=== PATIENT | male | born 1945 | race Caucasian/White ===

== ENCOUNTER 2017-02-25 09:42 | Day surgery (SDC) | payer MEDICARE, OTHER ==
[2017-02-21 12:07] VITALS: BMI 24.7
[~2017-02-25 09:42] MED LIST: LACTATED RINGERS 1,000 ML IV SCH
[2017-02-25] MEDS: FLURBIPROFEN 0.03% OPHTH DROPS 2.5 ML BTL OP ONE ×2 (10:51→11:00)
[2017-02-25] MEDS: CYCLOPENTOLATE 1% OPHTH SOLN 2 ML BTL OP ONE ×3 (10:54→11:12)
[2017-02-25 11:17] VITALS: TEMP 98.2
[2017-02-25] MEDS ORDERED: PROPOFOL 10 MG/ML 20 ML VIAL IV ONE (11:45)
[2017-02-25] MEDS ORDERED: BALANCED SALT IRRIG SOLN COMB2 15 ML IRRIG.SOLN INTRAOCULA ONE (11:52)
[2017-02-25] MEDS ORDERED: HYALURONATE SODIUM INTRAOCULAR 1 EACH SYRINGE (10MG/ML) INTRAOCULA ONE (11:53)
[2017-02-25] MEDS ORDERED: EPINEPHrine (PF) 0.5 ML in BALANCED SALT IRRIG SOLN COMB2 500 ML IRRIGATION ONE (11:53)
--- NOTE | 2017-02-25 12:07 | P.OP ---
Date of Procedure: 02/25/17 Preoperative Diagnosis: Postoperative Diagnosis: Procedure(s) Performed: PREOPERATIVE DIAGNOSIS: Cataract, left eye. POSTOPERATIVE DIAGNOSIS: Cataract, left eye. OPERATION: Phacoemulsification cataract, left eye. DESCRIPTION OF PROCEDURE: The patient was taken to the preoperative holding area. Intravenous Propofol was given so as to bring about adequate sedation. The following mixture was given for local anesthesia: 5 mL of 2% lidocaine, 5 mL of 0.75% Marcaine, and 1 mL of Wydase. Approximately 4 mL was injected in the retrobulbar space of the surgical eye. Additional 1 mL was then directed to the temporal area of the surgical eye. This was performed to allow adequate neurological block of the facial muscles. The patient was revived and then taken into the operative room. The patient was prepped and draped in the usual sterile manner for the operative eye. A lid speculum was put into position. The conjunctiva was resected back from the limbus in the 12 o'clock position. Bleeding was controlled with electrocautery. A #69 blade was then used and a half-thickness scleral incision approximately 1-mm posterior to the limbus was made on bare sclera. This was shelved in the clear cornea using a crescent knife. Next a 15-degree blade was used to make a stab incision at the 3 o' clock position at the corneolimbal interface. Keratome blade was then used and the superior wound was extended into the anterior chamber. Viscoelastic was injected into the anterior chamber and to maintain its form. Next, a cystotome was used and a continuous anterior capsulotomy was made without difficulty. Hydrodissection using a blunt cannula and BSS was performed. Phaco probe was then employed and a groove extending from 12 to 6 o'clock in the lens was created. A Rafiq wand was used through the stab incision so as to perform a divide and conquer technique. Next an irrigation aspiration probe was utilized and any residual cortex was removed from the eye. Again, viscoelastic was injected into the anterior chamber. An KAE Symfony posterior chamber lens implant was placed in the cartridge and injected into the anterior chamber without difficulty. The SinCloud Floorey hook was utilized to spin the lens into position and this was again performed without any difficulty. The irrigation and aspiration probe was again employed and any residual viscoelastic was removed from the eye. Then BSS was injected into the limbal stab incision and the anterior chamber re-inflated. The conjunctiva was reapproximated using electrocautery. One drop of 0.25% Timoptic was placed over the corneal along with TobraDex ophthalmic ointment. Two sterile patches and a Mendoza eye shield were taped into position. The patient was transported to the recovery room in stable condition. Implants: Pathology: none sent Condition: stable Disposition: same day Indications for Procedure: Operative Findings: Description of Procedure:
[2017-02-25 12:12] VITALS: RESP 18
[2017-02-25 12:51] VITALS: BP 174/86; PULSE 56
[2017-02-25] MEDS ORDERED: PHENYLEPHRINE 10% OPHTH DROPS 5 ML BTL OP ONE (23:00)
[2017-02-25] MEDS ORDERED: BUPIVACAINE (PF) 0.75% 5 ML, LIDOCAINE 4% (PF) 5 ML, HYALURONIDASE, HUMAN RECOMB 150 UNIT MISCELLANE ONE ×3 (23:00)
[2017-02-25] MEDS ORDERED: GENTAMICIN/PREDNISOL AC OPHTH OINT 3.5GM OPHTHALMIC ONE (23:00)
[2017-02-25] MEDS ORDERED: TIMOLOL 0.5% OPHTH SOLN (PF) 0.2 ML DROPERETTE OP ONE (23:00)
== END 2017-02-25 13:04 | disposition home or self-care (01) ==
LOC: OR 09:42
PROVIDERS: ATTEND Ophthalmology
DX: H26.9 Unspecified cataract (principal); E78.5 Hyperlipidemia, unspecified; Z85.46 Personal history of malignant neoplasm of prostate; Z85.89 Personal history of malignant neoplasm of other organs and systems; K21.9 Gastro-esophageal reflux disease without esophagitis; M10.9 Gout, unspecified; Z79.891 Long term (current) use of opiate analgesic; Z79.899 Other long term (current) drug therapy
CPT/HCPCS: 66984; V2632; V2788; J2001; J3470; J0171; J2704

== ENCOUNTER 2017-03-18 09:10 | Day surgery (SDC) | payer MEDICARE, OTHER ==
[2017-03-12 12:09] VITALS: BMI 54.8
[2017-03-18] MEDS ORDERED: LIDOCAINE 1% 20 ML VIAL (10MG/ML) FOR IV START INTRADERMA ONE (09:50)
[2017-03-18] MEDS: CYCLOPENTOLATE 1% OPHTH SOLN 2 ML BTL OP ONE ×3 (09:57→10:16)
[2017-03-18] MEDS: FLURBIPROFEN 0.03% OPHTH DROPS 2.5 ML BTL OP ONE ×3 (10:00→10:21)
[2017-03-18 10:03] VITALS: RESP 16; TEMP 97.3
[2017-03-18] MEDS: PHENYLEPHRINE 10% OPHTH DROPS 5 ML BTL OP ONE ×2 (10:03→10:13)
[2017-03-18] MEDS ORDERED: PROPOFOL 10 MG/ML 20 ML VIAL IV ONE (10:39)
[2017-03-18] MEDS ORDERED: EPINEPHrine (PF) 0.5 ML in BALANCED SALT IRRIG SOLN COMB2 500 ML IRRIGATION ONE (10:47)
[2017-03-18] MEDS ORDERED: HYALURONATE SODIUM INTRAOCULAR 1 EACH SYRINGE (10MG/ML) INTRAOCULA ONE ×2 (10:51→10:53)
[2017-03-18] MEDS ORDERED: BALANCED SALT IRRIG SOLN COMB2 15 ML IRRIG.SOLN IRRIGATION ONE ×2 (10:51→10:53)
--- NOTE | 2017-03-18 11:07 | P.OP ---
Date of Procedure: 03/18/17 Preoperative Diagnosis: Postoperative Diagnosis: Procedure(s) Performed: PREOPERATIVE DIAGNOSIS: Cataract, right eye. POSTOPERATIVE DIAGNOSIS: Cataract, right eye. OPERATION: Phacoemulsification cataract, right eye. DESCRIPTION OF PROCEDURE: The patient was taken to the preoperative holding area. Intravenous Propofol was given so as to bring about adequate sedation. The following mixture was given for local anesthesia: 5 mL of 2% lidocaine, 5 mL of 0.75% Marcaine, and 1 mL of Wydase. Approximately 4 mL was injected in the retrobulbar space of the surgical eye. Additional 1 mL was then directed to the temporal area of the surgical eye. This was performed to allow adequate neurological block of the facial muscles. The patient was revived and then taken into the operative room. The patient was prepped and draped in the usual sterile manner for the operative eye. A lid speculum was put into position. The conjunctiva was resected back from the limbus in the 12 o'clock position. Bleeding was controlled with electrocautery. A #69 blade was then used and a half-thickness scleral incision approximately 1-mm posterior to the limbus was made on bare sclera. This was shelved in the clear cornea using a crescent knife. Next a 15-degree blade was used to make a stab incision at the 3 o' clock position at the corneolimbal interface. Keratome blade was then used and the superior wound was extended into the anterior chamber. Viscoelastic was injected into the anterior chamber and to maintain its form. Next, a cystotome was used and a continuous anterior capsulotomy was made without difficulty. Hydrodissection using a blunt cannula and BSS was performed. Phaco probe was then employed and a groove extending from 12 to 6 o'clock in the lens was created. A Rafiq wand was used through the stab incision so as to perform a divide and conquer technique. Next an irrigation aspiration probe was utilized and any residual cortex was removed from the eye. Again, viscoelastic was injected into the anterior chamber. An KAE Symfony posterior chamber lens implant was placed in the cartridge and injected into the anterior chamber without difficulty. The SinThe TechMapey hook was utilized to spin the lens into position and this was again performed without any difficulty. The irrigation and aspiration probe was again employed and any residual viscoelastic was removed from the eye. Then BSS was injected into the limbal stab incision and the anterior chamber re-inflated. The conjunctiva was reapproximated using electrocautery. One drop of 0.25% Timoptic was placed over the corneal along with TobraDex ophthalmic ointment. Two sterile patches and a Mendoza eye shield were taped into position. The patient was transported to the recovery room in stable condition. Implants: Pathology: none sent Condition: stable Disposition: same day Indications for Procedure: Operative Findings: Description of Procedure:
[2017-03-18 11:25] VITALS: BP 166/89; PULSE 62
[2017-03-18] MEDS ORDERED: BUPIVACAINE (PF) 0.75% 5 ML, LIDOCAINE 4% (PF) 5 ML, HYALURONIDASE, HUMAN RECOMB 150 UNIT MISCELLANE ONE ×3 (23:00)
[2017-03-18] MEDS ORDERED: GENTAMICIN/PREDNISOL AC OPHTH OINT 3.5GM OPHTHALMIC ONE (23:00)
[2017-03-18] MEDS ORDERED: TIMOLOL 0.5% OPHTH SOLN (PF) 0.2 ML DROPERETTE OP ONE (23:00)
== END 2017-03-18 11:54 | disposition home or self-care (01) ==
LOC: OR 09:10
PROVIDERS: ATTEND Ophthalmology
DX: H26.9 Unspecified cataract (principal); Z85.46 Personal history of malignant neoplasm of prostate; M10.9 Gout, unspecified; Z79.82 Long term (current) use of aspirin; Z79.899 Other long term (current) drug therapy; K21.9 Gastro-esophageal reflux disease without esophagitis
CPT/HCPCS: 66984; V2632; V2788; J2001; J3470; J0171; J2704

== ENCOUNTER → 2017-07-30 | Outpatient (CLI) | payer MEDICARE, OTHER ==
--- NOTE | 2017-07-30 10:18 | MR ---
MR right hip HISTORY: Pain, multiple myeloma Multiplanar multisequence imaging obtained through the pelvis with small [id number] images through the right hip. No comparisons There is marginal spurring with loss of articular cartilage, joint space loss within the bilateral hi ps. Joint effusions are present right greater than left. Grade 3 to grade IV chondromalacia suspected within the right femoral head. Abnormal increased signal present at the level of the acetabular labr um suggestive of tear is suspected on the left as well as the right. Some hypertrophic change present along the lateral acetabular margin. Bone marrow signal is diffusely somewhat heterogeneous compatib le with patient's history of multiple myeloma. No evident fracture or dislocation. Degenerative disc changes are present in the lower lumbar spine. Urinary bladder shows a thickened wall. Prostate is enlarged. Tarlov cysts suspected over the sacral region. IMPRESSION: Findings compatible with patient's history of multiple myeloma. Osteoarthritis. Correlate for chronic bladder outlet obstruction versus cystitis. Findings compatible with patient's history o f multiple myeloma.
== END | disposition home or self-care (01) ==
LOC: RADMRIMAIN 08:21
PROVIDERS: ATTEND Internal Medicine Hematology & Oncology
DX: C90.01 Multiple myeloma in remission (principal); M16.11 Unilateral primary osteoarthritis, right hip

== ENCOUNTER → 2018-08-03 | Outpatient (CLI) | payer MEDICARE, OTHER ==
--- NOTE | 2018-08-03 16:40 | XR ---
EXAMINATION TYPE: XR elbow limited RT DATE OF EXAM: 08/03/2018 COMPARISON: NONE HISTORY: Elbow pain and swelling TECHNIQUE: 2 views FINDINGS: There is mild spurring on the olecranon process. There is posterior soft tissue swelling. I see no fracture nor dislocation. There is some spurring at the radiohumeral joint. This calcificatio n over the lateral collateral ligament. IMPRESSION: Degenerative changes. Mild soft tissue swelling. No fracture.
== END | disposition home or self-care (01) ==
LOC: RADXRMAIN 16:18
PROVIDERS: ATTEND Registered Nurse Oncology
DX: M19.021 Primary osteoarthritis, right elbow (principal); C90.01 Multiple myeloma in remission; G89.3 Neoplasm related pain (acute) (chronic)

== ENCOUNTER → 2019-01-26 | Outpatient (CLI) | payer MEDICARE, OTHER ==
--- NOTE | 2019-01-26 10:43 | MR ---
EXAMINATION TYPE: MR knee RT wo con DATE OF EXAM: 01/26/2019 COMPARISON: None HISTORY: Pain in right knee / Rule out torn meniscus TECHNIQUE: Multiplanar, multisequence imaging of the right knee is performed without IV contrast. FINDINGS: MEDIAL MENISCUS: There is a complex tear involving the posterior horn of the medial meniscus LATERAL MENISCUS: Anterior and posterior horns are intact without tear. CRUCIATE LIGAMENTS: The anterior and posterior cruciate ligaments are intact and unremarkable. COLLATERAL LIGAMENTS: The medial collateral ligament and lateral collateral ligament complex are inta ct and unremarkable. EXTENSOR MECHANISM: Visualized quadriceps and patellar tendons are intact. EFFUSION: There is a moderate-sized suprapatellar bursal fluid collection. POPLITEAL CYST: No popliteal/corcoran cyst. TRICOMPARTMENT SPACES: There is narrowing of the knee joint as well as the patellofemoral joint with mild hypertrophic spurring and a pattern compatible with osteoarthritis. No erosive changes. CARTILAGE: Grade II chondromalacia of the lateral patellar facet. BONE MARROW SIGNAL: There is marrow edema involving the medial tibial plateau as well as the lateral femoral condyle. Definite fracture lines are seen. OTHER: There is a metallic artifact secures portions of the patella and infrapatellar anatomy partic ularly along the medial compartment. There also appears to be mild increased signal and thickening th e popliteus tendon. Correlate for tendinopathy. IMPRESSION: 1. Exam limited by metallic artifact. Findings are compatible with complex tear involving the posteri or horn medial meniscus. 2. Osteoarthritis. 3. Correlate for popliteus tendinopathy. 4. Nonspecific marrow edema or contusion involving the medial tibial plateau and lateral femoral cond yle.
== END | disposition home or self-care (01) ==
LOC: RADMRIMAIN 08:52
PROVIDERS: ATTEND Orthopaedic Surgery
DX: M17.11 Unilateral primary osteoarthritis, right knee (principal)

== ENCOUNTER 2019-07-07 07:17 | Day surgery (SDC) | payer MEDICARE, OTHER ==
[2019-07-01 08:53] VITALS: BMI 23.2
[~2019-07-07 07:17] MED LIST changes: +DEXAMETHASONE SOD PHOSPHATE 10 MG/ML 1 ML VIAL IV ONE; +HEPARIN SODIUM,PORCINE 5,000 UNIT/ML 1 ML VIAL SQ ONE; -LACTATED RINGERS 1,000 ML IV SCH; +LIDOCAINE 1% 20 ML VIAL (10MG/ML) FOR IV START INTRADERMA PRN; +METOCLOPRAMIDE 5 MG/ML 2 ML VIAL IVP PRN
[2019-07-07] MEDS: ONDANSETRON 4 MG/2 ML VIAL IVP ONE ×2 (08:00→11:24)
[2019-07-07] MEDS: LACTATED RINGERS 1,000 ML IV SCH ×2 (08:05→09:19)
[2019-07-07] MEDS ORDERED: LIDOCAINE 1% INJ 10MG/ML (20 ML MDV) ONE (09:18)
[2019-07-07] MEDS ORDERED: fentaNYL (PF) 50 MCG/ML 2 ML AMP ONE (09:18)
[2019-07-07] MEDS ORDERED: GLYCOPYRROLATE 0.2 MG/ML 2 ML VIAL ONE (09:18)
[2019-07-07] MEDS ORDERED: NEOSTIGMINE 1 MG/ML 10 ML VIAL ONE (09:18)
[2019-07-07] MEDS ORDERED: SUCCINYLCHOLINE CHLORIDE 100 MG/5 ML SYR IV ONE (09:18)
[2019-07-07] MEDS ORDERED: PROPOFOL 10 MG/ML 20 ML VIAL IV ONE (09:18)
[2019-07-07] MEDS ORDERED: ROCURONIUM BROMIDE 10 MG/ML 10 ML VIAL IV ONE (09:18)
[2019-07-07] MEDS ORDERED: MIDAZOLAM 2 MG/2 ML VIAL ONE (09:18)
[2019-07-07] MEDS ORDERED: BUPIVACAINE (PF) 0.5% 30 ML VIAL SQ ONE ×2 (09:45→10:55)
[2019-07-07] MEDS ORDERED: HYDROcodone/APAP 5-325MG 1 EACH TAB PO PRN (11:01)
[2019-07-07] MEDS ORDERED: NALOXONE 0.4 MG/ML 1 ML VIAL IV PRN (11:01)
[2019-07-07] MEDS ORDERED: TAMSULOSIN 0.4 MG CAP.ER.24H PO STA (11:01)
[2019-07-07] MEDS ORDERED: HYDROmorphone 0.5 MG/0.5 ML SYRINGE IVP PRN (11:01)
--- NOTE | 2019-07-07 11:02 | P.OP ---
Date of Procedure: 07/07/19 Procedure(s) Performed: PREOPERATIVE DIAGNOSIS: Right inguinal hernia POSTOPERATIVE DIAGNOSIS: Same PROCEDURE: Laparoscopic repair right inguinal hernia with the da Destiney robot assistance with mesh SURGEON: Miranda EBL: Minimal ANESTHESIA: General COMPLICATIONS: None OPERATIVE PROCEDURE: Patient was placed in the operating table in the supine position. The patient was placed under general anesthesia. The abdomen was prepped and draped in usual sterile fashion. A small curvilinear supraumbilical incision was made. The fascia was retracted anteriorly with Jad forceps. The Veress needle was inserted. The saline drop test was normal. Insufflation took place to 15 mmHg. A 5 mm trocar was placed into the peritoneal cavity. This was later switched to a 12 mm trocar. 2 additional 8 mm trochars were placed in the right upper quadrant and left upper quadrant under visualization. The robotic arms were then brought in and docked into place. The fenestrated bipolar was used in the left arm and the laparoscopic con was utilized in the right arm. A 30 12 mm scope was used in the up position. The peritoneal cavity was inspected. The patient had a moderate sized indirect hernia on the right side. No hernia identified on the left. The peritoneum was incised in a horizontal fashion cephalad to the internal inguinal ring. Following that careful dissection of the preperitoneal space took place. This took place using both electrocautery, sharp dissection but primarily blunt dissection. Visualization of the pubic tubercle and Scottie's ligament took place medially. Full dissection took place laterally as well. The hernia sac was fully dissected. Once we had adequate space the 15 x 10 progrip mesh was advanced into the preperitoneal space and flattened out appropriately to cover all potential hernia sites. No sutures were used. The peritoneal defect was then closed using a locking 2-0 VLok suture. The large hernia sac was incorporated into the peritoneal closure. The pneumoperitoneum was then evacuated. The fascia at the 12 mm site was closed using the Steve Argueta technique and an 0 Vicryl stitch. The skin of all 3 sites was closed using a 4-0 Monocryl stitch. Skin glue was then applied. DISPOSITION: Stable to recovery room
[2019-07-07 11:15] VITALS: TEMP 97.3
[2019-07-07] MEDS: HYDROmorphone 0.5 MG/0.5 ML SYRINGE IVP PRN ×4 (11:24→11:53)
[2019-07-07] MEDS ORDERED: KETOROLAC 30 MG/ML 1 ML VIAL IVP ONE (11:24)
[2019-07-07 14:00] VITALS: BP 154/74; PULSE 46; RESP 18
== END 2019-07-07 14:42 | disposition home or self-care (01) ==
LOC: OR 07:17
PROVIDERS: ATTEND Surgery
DX: K40.90 Unilateral inguinal hernia, without obstruction or gangrene, not specified as recurrent (principal); I10 Essential (primary) hypertension; C90.01 Multiple myeloma in remission; D72.819 Decreased white blood cell count, unspecified; M10.9 Gout, unspecified; E78.5 Hyperlipidemia, unspecified; H91.90 Unspecified hearing loss, unspecified ear; K21.9 Gastro-esophageal reflux disease without esophagitis; M19.90 Unspecified osteoarthritis, unspecified site; Z79.1 Long term (current) use of non-steroidal anti-inflammatories (NSAID); Z79.899 Other long term (current) drug therapy; Z79.82 Long term (current) use of aspirin; Z85.46 Personal history of malignant neoplasm of prostate; Z94.84 Stem cells transplant status; Z87.19 Personal history of other diseases of the digestive system; Z98.42 Cataract extraction status, left eye; Z98.41 Cataract extraction status, right eye; Z87.891 Personal history of nicotine dependence; Z96.1 Presence of intraocular lens
CPT/HCPCS: 84132; 49650; C1781; J2250; J1644; J1100; J2710; J0690; J2405; J2001; J3010; J1885; J0330; J2704; J1170

== ENCOUNTER 2020-03-02 09:43 | Emergency (ER) | payer MEDICARE, OTHER ==
[2020-03-02 09:52] VITALS: BP 186/93; PULSE 65; RESP 18; TEMP 98
--- NOTE | 2020-03-02 10:13 | ED ---
Neck Injury/Pain HPI - General Chief Complaint: Neck Pain/Injury Stated Complaint: Stiff neck Time Seen by Provider: 03/02/20 09:53 Mode of arrival: ambulatory Limitations: no limitations - History of Present Illness Initial Comments: Patient is a 75-year-old male presenting to the emergency Department with complaints of neck pain x 1 day. 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 Patient states he woke up the next morning with a mild stiff neck and the pain has been progressing for the last day. Patient states he has pain with turning his head to each side. He does have pain medication at home however he states it did not help with his pain. He denies having any falls or trauma. He denies having recent fever, chills, chest pain, abdominal pain. He denies any previous neck surgeries. He has no further complaints at this time. Upon arrival to the ER, his vital signs are stable. - Related Data Home Medications Medication Instructions Recorded Confirmed Omeprazole [PriLOSEC] 20 mg PO [id number] 04/21/15 07/01/19 Cetirizine HCl [Zyrtec] 10 mg PO DAILY 05/01/15 07/01/19 Colchicine [Colcrys] 0.6 mg PO BID PRN 05/01/15 07/01/19 Aspirin 325 mg PO DAILY 02/21/17 07/01/19 Multivitamins, Thera [Multivitamin 1 tab PO DAILY 02/21/17 07/01/19 (formulary)] Niacin 500 mg PO DAILY 02/21/17 07/01/19 Tamsulosin [Flomax] 0.4 mg PO DAILY 02/21/17 07/01/19 Allopurinol [Zyloprim] 300 mg PO DAILY 04/14/19 07/01/19 Ibuprofen [Motrin] 800 mg PO BID 04/14/19 07/01/19 Lenalidomide [Revlimid] 5 mg PO DAILY 04/14/19 07/01/19 Cholecalciferol (Vitamin D3) 5,000 unit PO DAILY 07/01/19 07/01/19 [Vitamin D3] Previous Rx's Medication Instructions Recorded Cyclobenzaprine [Flexeril] 5 mg PO BID PRN #10 tablet 03/02/20 Allergies Allergy/AdvReac Type Severity Reaction Status Date / Time No Known Allergies Allergy Verified 03/02/20 09:52 Review of Systems ROS Statement: Those systems with pertinent positive or pertinent negative responses have been documented in the HPI. ROS Other: All systems not noted in ROS Statement are negative. Past Medical History Past Medical History: Cancer, GERD/Reflux, GI Bleed, Hyperlipidemia, Prostate Disorder, Skin Disorder Additional Past Medical History / Comment(s): HX OF PROSTATE CA (tx with radiation), Multiple myeloma. GOUT, hiatal hernia, arthritis in joints, seborrhea on forehead. History of Any Multi-Drug Resistant Organisms: None Reported Past Surgical History: Hernia Repair Additional Past Surgical History / Comment(s): BONE MARROW biopsy x 2, ARTHROSCOPY OF rt SHOULDER, COLONOSCOPY AND EGD, arthroscopy rt knee, left eye- cataract surgery Past Anesthesia/Blood Transfusion Reactions: No Reported Reaction Additional Past Anesthesia/Blood Transfusion Reaction / Comment(s): . Past Psychological History: No Psychological Hx Reported Smoking Status: Never smoker Past Alcohol Use History: Occasional Past Drug Use History: None Reported - Past Family History Father Family Medical History: Cancer General Exam - General Exam Comments Initial Comments: GENERAL: Well-appearing, well-nourished and in no acute distress. HEAD: Atraumatic, normocephalic. EYES: Pupils equal round and reactive to light, extraocular movements intact, sclera anicteric, conjunctiva are normal. ENT: TMs normal, nares patent, oropharynx clear without exudates. Moist mucous membranes. NECK: Tender with palpation posterior cervical spine, bilateral cervical paraspinals. Decreased range of motion secondary to the pain. Without lymphadenopathy or JVD. LUNGS: Breath sounds clear to auscultation bilaterally and equal. No wheezes rales or rhonchi. HEART: Regular rate and rhythm without murmurs, rubs or gallops. ABDOMEN: Soft, nontender, normoactive bowel sounds. No guarding, no rebound. No masses appreciated. : Deferred EXTREMITIES: Normal range of motion, no pitting or edema. No clubbing or cyanosis. NEUROLOGICAL: Cranial nerves II through XII grossly intact. Normal speech, normal gait. PSYCH: Normal mood, normal affect. SKIN: Warm, Dry, normal turgor, no rashes or lesions noted. Limitations: no limitations Course Vital Signs 03/02/20 09:47 Temperature 98.0 F Pulse Rate 65 Respiratory 18 Rate Blood Pressure 186/93 O2 Sat by Pulse 99 Oximetry Medical Decision Making - Medical Decision Making Patient is a 75-year-old male presenting with neck pain times one day. No traumas or falls. X-rays reveal no acute fractures/dislocations. I discussed with patient this is most likely muscle related. He will continue with hot packs as well as gentle stretching. Patient will trial of muscle relaxer. He is in agreement with this plan of care. He is stable for discharge. He will f/u with PCP. Return parameters were discussed with the patient and he verbalized understanding. Disposition Clinical Impression: Cervical strain, Neck pain Disposition: HOME SELF-CARE Condition: Stable Instructions (If sedation given, give patient instructions): Cervical Strain (ED) Additional Instructions: Please return to the Emergency Department if symptoms worsen or any other concerns. May use Tylenol or Motrin for discomfort. Apply hot packs to the area and gentle stretching. Follow up with PCP as symptoms persist. Prescriptions: Cyclobenzaprine [Flexeril] 5 mg PO BID PRN #10 tablet PRN Reason: Muscle Spasm Is patient prescribed a controlled substance at d/c from ED?: No Referrals: Petra Gutierrez MD [Primary Care Provider] - 1-2 days
--- NOTE | 2020-03-02 10:30 | XR ---
EXAMINATION TYPE: XR cervical spine comp DATE OF EXAM: 03/02/2020 CLINICAL HISTORY: pain COMPARISON: NONE TECHNIQUE: Frontal, lateral, oblique, swimmers, and open mouth view of the cervical spine are obtaine d. FINDINGS: Mild curvature seen convex to the left. There is moderate to severe degenerative disc space narrowing C3-4 through C7-T1. There is grade 1 anterolisthesis of C5 on C6 measuring 3 mm related to severe degenerative change of the cervical apophyseal joints. No evidence for fracture. Bilateral ne ural foraminal encroachment. IMPRESSION: No acute fracture is seen in the cervical spine.ICD 10 NO FRACTURE, INITIAL EVALUATION
== END 2020-03-02 10:47 | disposition home or self-care (01) ==
LOC: EC 09:43
DX: S16.1XXA Strain of muscle, fascia and tendon at neck level, initial encounter (principal); K21.9 Gastro-esophageal reflux disease without esophagitis; Z79.82 Long term (current) use of aspirin; Z79.899 Other long term (current) drug therapy; Z85.46 Personal history of malignant neoplasm of prostate; X58.XXXA Exposure to other specified factors, initial encounter
CPT/HCPCS: 72050; 99283

== ENCOUNTER → 2020-06-01 | Outpatient (CLI) | payer MEDICARE ==
--- NOTE | 2020-06-01 09:25 | MR ---
MRI CERVICAL SPINE: CLINICAL HISTORY: History of multiple myeloma with neck pain. TECHNIQUE: Multiplanar, multisequence imaging of the cervical spine is performed with IV contrast, 7. 5 cc of gadolinium was given intravenously. Without contrast imaging not performed as could not be au thorized prior to scanning. COMPARISON: None. FINDINGS: Coronal images show marked dextroconvex scoliosis centered in the upper thoracic spine with some reactive levoconvex scoliosis centered in the mid cervical spine. Sagittal images of the cervic al spine show the craniocervical junction to appear within normal limits. The cervical and upper tho racic spinal cord is normal in caliber and signal. Loss of normal cervical curvature on sagittal imag es with grade 1 anterolisthesis C4 ON C5 and C5 on C6. The vertebral body heights are normal. Mild multilevel disc space narrowing. The bone marrow signal intensity is within normal limits. No suspici ous postcontrast enhancement. Axial images show the C2-C3 level to appear within normal limits. Axial images at the C3-C4 level shows central disc protrusion mildly effacing the anterior thecal sac with uncovertebral and facet degenerative changes causing mild to moderate right-sided neural forami nal narrowing. Axial images at the C4-C5 level show more prominent broad-based left paracentral disc protrusion effa cing the anterior thecal sac causing flattening of the ventral surface of spinal cord with some isrrael nal spurring and uncovertebral facet degenerative changes greater on the right causing moderate to se chelle right-sided neural foraminal narrowing. Axial images at C5-C6 level show right-sided uncovertebral facet degenerative changes along with broa d-based left paracentral disc protrusion. There is effacement of the anterior thecal sac and causing mild to moderate right-sided neural foraminal narrowing. Axial images at the C6-C7 level show right lateral spurring with central disc protrusion minimally ef facing anterior thecal sac, there is asymmetric mild to moderate right-sided neural foraminal narrowi ng. Axial images at the C7-T1 level are felt within normal limits. IMPRESSION: Scoliosis along with multilevel degenerative changes in the cervical spine as detailed ab ove. Most prominent disc herniation noted at C4-C5 level. Increased right-sided uncovertebral facet d egenerative change is noted versus opposite left side. No suspicious focal osseous lesion to suggest myeloma involvement.
== END | disposition home or self-care (01) ==
LOC: RADMRIMAIN 07:48
PROVIDERS: ATTEND Internal Medicine Hematology & Oncology
DX: M41.82 Other forms of scoliosis, cervical region (principal); M50.221 Other cervical disc displacement at C4-C5 level; M47.892 Other spondylosis, cervical region; C90.01 Multiple myeloma in remission
CPT/HCPCS: 72142; A9585

== ENCOUNTER 2020-09-09 11:52 | Emergency (ER) | payer MEDICARE ==
[2020-09-09 12:10] VITALS: BP 186/81; PULSE 80; RESP 18; TEMP 98
--- NOTE | 2020-09-09 12:46 | XR ---
EXAMINATION TYPE: XR humerus LT DATE OF EXAM: 09/09/2020 CLINICAL HISTORY: Fall injury with pain TECHNIQUE: Two views of the left humerus are obtained. COMPARISON: None. FINDINGS: There is no acute fracture or dislocation seen in the left humerus. Mild to moderate narro wing at glenohumeral and acromioclavicular joints. Mild spurring on the lateral humeral articulation. The overlying soft tissue appears within normal limits. IMPRESSION: No acute fracture or dislocation is evident in the left humerus.
[2020-09-09] MEDS ORDERED: LIDOCAINE 5% PATCH TOPICAL STA (13:14)
--- NOTE | 2020-09-09 13:16 | ED ---
General Adult HPI - General Chief complaint: Extremity Injury, Upper Stated complaint: Fall/Left Arm Time Seen by Provider: 09/09/20 13:02 Source: patient Mode of arrival: ambulatory Limitations: no limitations - History of Present Illness Initial comments: Dictation was produced using [employer] dictation software. please excuse any grammatical, word or spelling errors. This patient was cared for during a federal and state declared state of emergency secondary to Covid 19 Chief Complaint: 75-year-old male presents with arm pain History of Present Illness: 75-year-old male who states he presents with left arm pain. Patient reports that he tripped over some [employer]. He fell forward and uses left elbow to try to catch his fall. Since then he's had left humerus pain. Patient denies any other trauma. Has no complaints. His complaint of some mild worsening with abduction of the left upper extremity. He denies any wrist pain. The ROS documented in this emergency department record has been reviewed and confirmed by me. Those systems with pertinent positive or negative responses have been documented in the HPI. All other systems are other negative and/or noncontributory. PHYSICAL EXAM: General Impression: Alert and oriented x3, not in acute distress HEENT: Normocephalic atraumatic, extra-ocular movements intact, pupils equal and reactive to light bilaterally, mucous membranes moist. Cardiovascular: Heart regular rate and rhythm Chest: Able to complete full sentences, no retractions, no tachypnea Abdomen: abdomen soft, non-tender, non-distended, no organomegaly Musculoskeletal: Pulses present and equal in all extremities, no peripheral edema Motor: no focal deficits noted Neurological: CN II-XII grossly intact, no focal motor or sensory deficits noted Left upper extremity: Atraumatic, there is tenderness to palpation over the left lateral humerus. Pain is reproduced with abduction Skin: Intact with no visualized rashes Psych: Normal affect and mood ED course: 75-year-old male presents with left upper extremity pain. As upon arrival are within acceptable limits. X-rays unremarkable. Patient given Lidoderm patch. Patient will be discharged. - Related Data Home Medications Medication Instructions Recorded Confirmed Omeprazole [PriLOSEC] 20 mg PO AC-BRKFST 04/21/15 07/01/19 Cetirizine HCl [Zyrtec] 10 mg PO DAILY 05/01/15 07/01/19 Colchicine [Colcrys] 0.6 mg PO BID PRN 05/01/15 07/01/19 Aspirin 325 mg PO DAILY 02/21/17 07/01/19 Multivitamins, Thera [Multivitamin 1 tab PO DAILY 02/21/17 07/01/19 (formulary)] Niacin 500 mg PO DAILY 02/21/17 07/01/19 Tamsulosin [Flomax] 0.4 mg PO DAILY 02/21/17 07/01/19 Ibuprofen [Motrin] 800 mg PO BID 04/14/19 07/01/19 Lenalidomide [Revlimid] 5 mg PO DAILY 04/14/19 07/01/19 allopurinoL [Zyloprim] 300 mg PO DAILY 04/14/19 07/01/19 Cholecalciferol (Vitamin D3) 5,000 unit PO DAILY 07/01/19 07/01/19 [Vitamin D3] Previous Rx's Medication Instructions Recorded Cyclobenzaprine [Flexeril] 5 mg PO BID PRN #10 tablet 03/02/20 Allergies Allergy/AdvReac Type Severity Reaction Status Date / Time No Known Allergies Allergy Verified 09/09/20 12:06 Review of Systems ROS Statement: Those systems with pertinent positive or pertinent negative responses have been documented in the HPI. ROS Other: All systems not noted in ROS Statement are negative. Past Medical History Past Medical History: Cancer, GERD/Reflux, GI Bleed, Hyperlipidemia, Prostate Disorder, Skin Disorder Additional Past Medical History / Comment(s): HX OF PROSTATE CA (tx with radiation), Multiple myeloma. GOUT, hiatal hernia, arthritis in joints, seborrhea on forehead. History of Any Multi-Drug Resistant Organisms: None Reported Past Surgical History: Hernia Repair Additional Past Surgical History / Comment(s): BONE MARROW biopsy x 2, ARTHROSCOPY OF rt SHOULDER, COLONOSCOPY AND EGD, arthroscopy rt knee, left eye- cataract surgery Past Anesthesia/Blood Transfusion Reactions: No Reported Reaction Additional Past Anesthesia/Blood Transfusion Reaction / Comment(s): . Past Psychological History: No Psychological Hx Reported Smoking Status: Former smoker Past Alcohol Use History: Occasional Past Drug Use History: None Reported - Past Family History Father Family Medical History: Cancer General Exam Limitations: no limitations Course Vital Signs 09/09/20 12:06 Temperature 98 F Pulse Rate 80 Respiratory 18 Rate Blood Pressure 186/81 O2 Sat by Pulse 98 Oximetry Disposition Clinical Impression: Arm pain Disposition: HOME SELF-CARE Condition: Good Instructions (If sedation given, give patient instructions): Contusion in Adults (ED) Is patient prescribed a controlled substance at d/c from ED?: No Referrals: Oswald Carbajal MD [Primary Care Provider] - 1-2 days Time of Disposition: 13:16
== END 2020-09-09 13:38 | disposition home or self-care (01) ==
LOC: EC 11:52
DX: M79.602 Pain in left arm (principal); K21.9 Gastro-esophageal reflux disease without esophagitis; M19.90 Unspecified osteoarthritis, unspecified site; M10.9 Gout, unspecified; Z79.1 Long term (current) use of non-steroidal anti-inflammatories (NSAID); Z79.82 Long term (current) use of aspirin; Z79.899 Other long term (current) drug therapy; Z87.891 Personal history of nicotine dependence; Z85.46 Personal history of malignant neoplasm of prostate; Z98.42 Cataract extraction status, left eye; W01.0XXA Fall on same level from slipping, tripping and stumbling without subsequent striking against object, initial encounter; Y92.009 Unspecified place in unspecified non-institutional (private) residence as the place of occurrence of the external cause
CPT/HCPCS: 99283

== ENCOUNTER → 2022-05-22 | Outpatient (CLI) | payer MEDICARE ==
--- NOTE | 2022-05-22 10:34 | US ---
EXAMINATION TYPE: US duplex aorta DATE OF EXAM: 05/22/2022 COMPARISON: NONE CLINICAL HISTORY: Z13.6 SCREENING FOR CARDIOVASCULAR DISEASE. No HTN TECHNIQUE: Multiple sonographic images of the abdominal aorta are obtained. FINDINGS: EXAM MEASUREMENTS: Abdominal Aorta: Proximal: 1.7 x 1.6 cm Mid: 1.8 x 1.4 cm Distal: 1.7 x 1.8 cm Bifurcation: Right- 1.0 x 1.0 cm Left- 1.0 x 1.1 cm AUTOMATIC TRANSMISSION MECHANIC NOTES: Portions of aorta obscured by overlying bowel gas IMPRESSION: 1. No suspicious changes within visualized portions for abdominal aortic aneurysm.
== END | disposition home or self-care (01) ==
LOC: RADUSWWP 09:21
PROVIDERS: ATTEND Family Medicine
DX: Z13.6 Encounter for screening for cardiovascular disorders (principal)
CPT/HCPCS: 93979

== ENCOUNTER → 2022-11-01 | Outpatient (CLI) | payer MEDICARE ==
--- NOTE | 2022-11-04 12:49 | PE ---
EXAMINATION TYPE: PET CT fusion whole body DATE OF EXAM: 11/01/2022 CLINICAL INDICATION:Male, 77 years old with history of C90.01 Multiple Myeloma; TECHNIQUE: Following the intravenous administration of 10.15 mCi of F-18 FDG, whole body images are performed from the skull base to the midthigh. Images are reviewed on the computer in the coronal, axial, and sagittal planes. Reconstructed rotating images are created on independent workstation and reviewed on the computer. A non-contrast CT is performed in conjunction with the PET scan. Glucose level 80 mg/dL COMPARISON: CT None, PET/CT None, MR cervical spine 06/01/2020 FINDINGS: Mediastinal SUV mean is 1.1. Hepatic parenchyma SUV mean is 2.0. SKULL BASE AND NECK: No suspicious radiotracer activity. Laryngeal probable vocal cord physiologic u ptake max SUV 7.0. CHEST, MEDIASTINUM, AND HILAR REGION: No suspicious radiotracer activity. ABDOMEN AND PELVIS: No suspicious radiotracer activity. OSSEOUS STRUCTURES: No suspicious radiotracer activity. OTHER CT: Atherosclerosis of the carotid bifurcations including the coronary arteries. Heart is mildl y enlarged for size. Mild bladder wall thickening which could be due to underdistention. IMPRESSION: No suspicious radiotracer activity.
== END | disposition home or self-care (01) ==
LOC: RADPETMAIN 09:46
PROVIDERS: ATTEND Internal Medicine Hematology & Oncology
DX: C90.01 Multiple myeloma in remission (principal)
CPT/HCPCS: 78816; A9552

== ENCOUNTER → 2024-04-22 | Outpatient (CLI) | payer MEDICARE ==
--- NOTE | 2024-04-22 11:53 | MR ---
EXAMINATION TYPE: MR lumbar spine wo/w con DATE OF EXAM: 04/22/2024 COMPARISON: None HISTORY: Low back pain into rt lower extremity, Hx of multiple myeloma TECHNIQUE: Multiplanar, multisequence images of the lumbar spine were acquired without and with 5 mL intravenous Gadavist gadolinium contrast. Findings: There is a moderate compression fracture of T12 and mild superior endplate compression fractures of L 1 and L2. The vertebral segments are normal in alignment. There is heterogeneous signal intensity throughout the lumbar lower thoracic vertebral segments with heterogeneous contrast enhancement consistent with the history of multiple myeloma. There is a mild to moderate broad-based central disc protrusion at L4-5 disc slightly greater to the left of midline resulting in minimal compromise of the left lateral recess. There is loss of signal intensity, mild disc space narrowing and circumferential disc bulge at the L3 -4, L4-5 and L5-S1 discs indicating mild degenerative disc disease. There is mild facet arthropathy at the L4-5 and L5-S1 levels and moderate to marked facet arthropathy at the L2-3 and L3-4 levels. Secondary to circumferential disc bulge and thickening of the ligamentum flavum and facet hypertrophy , there is mild spinal stenosis at the L3-4 level. There is moderate neuroforaminal stenosis L5-S1 level bilaterally and moderate neural foraminal steno sis at the L4-5 level on the left. IMPRESSION: 1. Mild signal intensity in the regular enhancement of the vertebral segments in the lower thoracic a nd lumbar spine consistent with history of multiple myeloma. 2. Pathologic compression fractures at the T12, L1 and L2 level as described above. 3. L4-5 disc protrusion is described above. Mild degenerative disc disease from L3 through S1 4. Mild spinal stenosis at the L3-4 level. 5. Facet arthropathy throughout the lumbar region moderate to marked at the L2-3 and L3-4 level. 6. L4-5 and L5-S1 neural foraminal stenosis as described above.
== END | disposition home or self-care (01) ==
LOC: RADMRIMAIN 07:54
PROVIDERS: ATTEND Internal Medicine Hematology & Oncology
DX: M47.816 Spondylosis without myelopathy or radiculopathy, lumbar region (principal); C90.01 Multiple myeloma in remission; M99.73 Connective tissue and disc stenosis of intervertebral foramina of lumbar region; M48.55XA Collapsed vertebra, not elsewhere classified, thoracolumbar region, initial encounter for fracture; M48.061 Spinal stenosis, lumbar region without neurogenic claudication; M51.37 Other intervertebral disc degeneration, lumbosacral region; M51.26 Other intervertebral disc displacement, lumbar region; D72.819 Decreased white blood cell count, unspecified; D51.9 Vitamin B12 deficiency anemia, unspecified; R19.7 Diarrhea, unspecified
CPT/HCPCS: 72158; A9585

== ENCOUNTER → 2024-06-10 | Outpatient (CLI) | payer MEDICARE ==
--- NOTE | 2024-06-10 10:08 | PE ---
EXAMINATION TYPE: PET CT fusion whole body DATE OF EXAM: 06/10/2024 CLINICAL INDICATION:Male, 79 years old with history of D72.819 ChjpbbrbmbZ34.01Multiple IhlxocvN58.9A nemia R19.7; TECHNIQUE: Following the intravenous administration of 7.98 mCi of F-18 FDG, whole body images are performed from the skull base to the midthigh. Images are reviewed on the computer in the coronal, a xial, and sagittal planes. Reconstructed rotating images are created on independent workstation and reviewed on the computer. A non-contrast CT is performed in conjunction with the PET scan. Glucose level 112 mg/dL CT DLP: 656 mGycm, Automated exposure control for dose reduction was used. COMPARISON: CT None, PET/CT 11/01/2022, MRI: 04/22/2024 FINDINGS: Mediastinal SUV mean is 1.8. Hepatic parenchyma SUV mean is 2.6 SKULL BASE AND NECK: No suspicious radiotracer activity. Laryngeal probable vocal cord uptake max MCNULTY V 11.8, previously 7.0. CHEST, MEDIASTINUM, AND HILAR REGION: No suspicious radiotracer activity. ABDOMEN AND PELVIS: No suspicious radiotracer activity. OSSEOUS STRUCTURES: No suspicious radiotracer activity. Linear uptake to L3 vertebral body max SUV 5. 0 with 25% height loss and no significant retropulsion findings, new from MRI. OTHER CT: Atherosclerosis of the carotid bifurcations including the coronary arteries. Heart is mildl y enlarged for size. Mild bladder wall thickening which could be due to underdistention. IMPRESSION: 1. No suspicious radiotracer activity. 2. Linear uptake to the L3 vertebral body compatible with compression fracture with 25% height loss.
== END | disposition home or self-care (01) ==
LOC: RADPETMAIN 06:56
PROVIDERS: ATTEND Internal Medicine Hematology & Oncology
DX: C90.01 Multiple myeloma in remission (principal); D51.9 Vitamin B12 deficiency anemia, unspecified; R19.7 Diarrhea, unspecified; R93.7 Abnormal findings on diagnostic imaging of other parts of musculoskeletal system; D72.819 Decreased white blood cell count, unspecified; D64.9 Anemia, unspecified
CPT/HCPCS: 78816; A9552

== ENCOUNTER 2024-07-06 06:26 | Day surgery (SDC) | payer MEDICARE ==
[2024-07-01 09:29] VITALS: BMI 20.5
[2024-07-06 06:53] VITALS: TEMP 97.1
[2024-07-06] MEDS: IV FLUID CONTINUATION 1,000 ML IV ONE (06:53)
[2024-07-06] MEDS: LACTATED RINGERS 1,000 ML IV SCH (06:53)
[2024-07-06] MEDS ORDERED: LIDOCAINE 1% INJ 10MG/ML (20 ML MDV) ONE (07:06)
[2024-07-06] MEDS ORDERED: PROPOFOL 10 MG/ML 20 ML VIAL IV ONE (07:06)
[2024-07-06 07:49] VITALS: BP 124/60; PULSE 67; RESP 17
[2024-07-06 07:56] LABS: HCT 37.3 % (39.0-53.0); HGB 12.7 gm/dL (13.0-17.5); MCH 34.9 pg (25.0-35.0); MCHC 33.9 g/dL (31.0-37.0); MCV 102.9 fL (80.0-100.0); Macrocytosis Slight; Mean Platelet Volume 8.8; Platelet Count 129 k/uL (150-450); RBC 3.63 m/uL (4.30-5.90); RDW 15.5 % (11.5-15.5); Reticulocyte % 1.7 % (0.5-2.0); WBC 4.1 k/uL (3.8-10.6)
[2024-07-06 08:37] LABS: Eosinophils # (M) 0.04 k/uL (0-0.7); Lymphocytes # (M) 1.72 k/uL (1.0-4.8); Monocytes # (M) 0.66 k/uL (0-1.0); Neutrophils # (M) 1.68 k/uL (1.3-7.7); Neutrophils % (M) 41 %; Nucleated Red Blood Cells 0 /100 WBC (0-0); Total Cells Counted 100
--- NOTE | 2024-07-08 14:47 | OP ---
OPERATIVE REPORT DATE OF SERVICE : 07/06/2024 PROCEDURE: Bone marrow aspirate and biopsy. INDICATION: Recurrent multiple myeloma. DESCRIPTION OF PROCEDURE: After obtaining consent from the patient, the procedure was performed in the endoscopy suite under general anesthesia performed by anesthesia team. The patient was put on the left lateral decubitus position. The right posterior iliac crest was localized. Skin was prepped with ChloraPrep. All sterile procedures were followed. About 1 mL of 2% xylocaine was used for local anesthetic. Jamshidi needle was inserted, about 15 mL of aspirate and 2 cm core biopsy was obtained without any difficulties. Pressure applied afterwards. There was negligible blood loss. The patient tolerated the procedure very well without any immediate complications. MMODL / IJN: [id number] /
== END 2024-07-06 08:09 | disposition home or self-care (01) ==
LOC: OR 06:26
PROVIDERS: ATTEND Internal Medicine Hematology & Oncology
CPT/HCPCS: 38222; 85025; 85045

== ENCOUNTER 2024-07-30 11:09 | Emergency (ER) | payer MEDICARE ==
[2024-07-30 11:22] VITALS: RESP 18; TEMP 97.3
--- NOTE | 2024-07-30 11:27 | ED ---
Chest Pain HPI - General Chief Complaint: Chest Pain Stated Complaint: Chest Pain Time Seen by Provider: 07/30/24 11:15 Source: patient Mode of arrival: EMS Limitations: no limitations - History of Present Illness Initial Comments: 79-year-old male with past medical history of multiple myeloma who presents emergency department reporting chest pain. States that he received a new chemo injection today. He was at the cancer center and received that shot. He felt well for approximately 2 hours and then was discharged. He was driving home when he had sudden onset of chest pressure. Made him feel short of breath and nauseated. He had a pullover the side of the road. EMS was called and brought the patient in. They did give him nitro and aspirin. Patient states that the pain lasted for 2 hours before it resolved. He had no numbness, tingling or weakness in his extremities. No ripping or tearing sensation to his back. No history of DVT or PE. Denies history of cardiac disease. No fevers, chills or cough. This was the first time the patient received this type of chemo. No other alleviating, precipitating modifying factors - Related Data Home Medications Medication Instructions Recorded Confirmed Omeprazole [PriLOSEC] 20 mg PO AC-BRKFST 04/21/15 07/01/24 Cetirizine HCl [Zyrtec] 10 mg PO DAILY 05/01/15 07/01/24 Colchicine [Colcrys] 0.6 mg PO BID PRN 05/01/15 07/01/24 Aspirin 325 mg PO DAILY 02/21/17 07/01/24 Multivitamins, Thera [Multivitamin 1 tab PO DAILY 02/21/17 07/01/24 (formulary)] Lenalidomide [Revlimid] 5 mg PO DAILY 04/14/19 07/01/24 allopurinoL [Zyloprim] 300 mg PO DAILY 04/14/19 07/01/24 Cholecalciferol (Vitamin D3) 5,000 unit PO DAILY 07/01/19 07/01/24 [Vitamin D3] Cyanocobalamin [Vitamin B-12 1,000 mcg SQ QMONTHLY 07/01/24 07/01/24 Injection] Loperamide [Imodium] 2 mg PO QID PRN 07/01/24 07/01/24 traMADol HCL 50 mg PO Q6H PRN 07/01/24 07/06/24 Previous Rx's Medication Instructions Recorded Cyclobenzaprine [Flexeril] 5 mg PO BID PRN #10 tablet 03/02/20 Allergies Allergy/AdvReac Type Severity Reaction Status Date / Time No Known Allergies Allergy Verified 07/30/24 11:22 Review of Systems ROS Statement: Those systems with pertinent positive or pertinent negative responses have been documented in the HPI. ROS Other: All systems not noted in ROS Statement are negative. Past Medical History Past Medical History: Cancer, GERD/Reflux, GI Bleed, Prostate Disorder Additional Past Medical History / Comment(s): HX OF PROSTATE CA (tx with radiation), Multiple myeloma. GOUT, hiatal hernia, arthritis in joints, History of Any Multi-Drug Resistant Organisms: None Reported Past Surgical History: Hernia Repair, Orthopedic Surgery Additional Past Surgical History / Comment(s): BONE MARROW biopsy x 2, ARTHROSCOPY OF rt SHOULDER, COLONOSCOPY AND EGD, arthroscopy rt knee, both eye- cataract surgery Past Anesthesia/Blood Transfusion Reactions: No Reported Reaction Additional Past Anesthesia/Blood Transfusion Reaction / Comment(s): no blood transfusion. Past Psychological History: No Psychological Hx Reported Smoking Status: Former smoker Past Alcohol Use History: Daily, Occasional Past Drug Use History: None Reported - Past Family History Father Family Medical History: Cancer General Exam Limitations: no limitations General appearance: alert, in no apparent distress Head exam: Present: atraumatic, normocephalic, normal inspection Eye exam: Present: normal appearance, PERRL, EOMI. Absent: scleral icterus, conjunctival injection, periorbital swelling ENT exam: Present: normal exam, mucous membranes moist Neck exam: Present: normal inspection. Absent: tenderness, meningismus, lymphadenopathy Respiratory exam: Present: normal lung sounds bilaterally. Absent: respiratory distress, wheezes, rales, rhonchi, stridor Cardiovascular Exam: Present: regular rate, normal rhythm, normal heart sounds. Absent: systolic murmur, diastolic murmur, rubs, gallop, clicks GI/Abdominal exam: Present: soft, normal bowel sounds. Absent: distended, tenderness, guarding, rebound, rigid Extremities exam: Present: normal inspection, full ROM, normal capillary refill. Absent: tenderness, pedal edema, joint swelling, calf tenderness Back exam: Present: normal inspection Neurological exam: Present: alert, oriented X3, CN II-XII intact Psychiatric exam: Present: normal affect, normal mood Skin exam: Present: warm, dry, intact, normal color. Absent: rash Course Vital Signs 07/30/24 07/30/24 07/30/24 11:13 11:23 12:00 Temperature 97.3 F L Pulse Rate 82 63 Pulse Rate [ 66 Wood Hacker ] Respiratory 18 18 Rate Blood Pressure 124/60 116/94 O2 Sat by Pulse 95 96 Oximetry 07/30/24 07/30/24 13:56 15:20 Temperature Pulse Rate 64 68 Pulse Rate [ Wood Hacker ] Respiratory 18 18 Rate Blood Pressure 122/64 130/63 O2 Sat by Pulse 96 95 Oximetry Chest Pain MDM - MDM Was pt. sent in by a medical professional or institution (, PA, [facility], urgent care, hospital, or intermediate...) When possible be specific @ -No Did you speak to anyone other than the patient for history (EMS, parent, family, police, friend...)? What history was obtained from this source @ -Spoke with EMS for history Did you review nursing and triage notes (agree or disagree)? Why? @ -I reviewed and agree with nursing and triage notes Were old charts reviewed (outside hosp., previous admission, EMS record, old EKG, old radiological studies, urgent care reports/EKG's, intermediate records)? Report findings @ -No old charts were reviewed Differential Diagnosis (chest pain, altered mental status, abdominal pain women, abdominal pain men, vaginal bleeding, weakness, fever, dyspnea, syncope, headache, dizziness, GI bleed, back pain, seizure, CVA, palpatations, mental health, musculoskeletal)? @ -Differential Chest Pain: Stable Angina, Unstable Angina, STEMI, NSTEMI Aortic Dissection, Pneumothorax, Musculoskeletal, Esophageal Spasm GERD, Cholecystitis, Pancreatitis, Zoster, this is not meant to be an all-inclusive list. EKG interpreted by me (3pts min.). @ -Yes and demonstrates sinus rhythm with a rate of 68. MA interval 139. QRS 105. QTc of 436. No acute ST segment elevations or depressions X-rays interpreted by me (1pt min.). @ -Yes and demonstrates a possible osteolytic lesion right chest wall. Some lung nodules CT interpreted by me (1pt min.). @ -None done U/S interpreted by me (1pt. min.). @ -None done What testing was considered but not performed or refused? (CT, X-rays, U/S, labs)? Why? @ -Echo and stress test however patient will not stay hospitalized What meds were considered but not given or refused? Why? @ -None Did you discuss the management of the patient with other professionals (professionals i.e. , PA, [employer] [facility], lab, RT, psych nurse, social service assistant, chin strap cutter, teacher, aviation safety officer, manager case)? Give summary @ -No Was smoking cessation discussed for >3mins.? @ -No Was critical care preformed (if so, how long)? @ -No Were there social determinants of health that impacted care today? How? (Homelessness, low income, unemployed, alcoholism, drug addiction, transportation, low edu. Level, literacy, decrease access to med. care, half-way, rehab)? @ -No Was there de-escalation of care discussed even if they declined (Discuss DNR or withdrawal of care, Hospice)? DNR status @ -No What co-morbidities impacted this encounter? (DM, HTN, Smoking, COPD, CAD, Cancer, CVA, ARF, Chemo, Hep., AIDS, mental health diagnosis, sleep apnea, morbid obesity)? @ -Multiple myeloma Was patient admitted / discharged? Hospital course, mention meds given and route, prescriptions, significant lab abnormalities, going to OR and other pertinent info. @ -Upon arrival patient seen and evaluated in bed trauma 1. Thorough history and physical exam was performed. IV access was established. Laboratory studies were conducted. Chest x-ray was performed. Results are discussed with the patricia ent. He is pain-free at this time. I did recommend admission however patient does not want to be admitted. He was agreeable to letting me complete a second troponin. This is done and this is negative. I did inform him of the risks of not being admitted to the hospital to include permanent disability and even due to lack of complete cardiac workup. Patient understood these risks, was able to state them and do his own words however still made the choice to want to leave. At this time he will be discharged. Must immediately follow-up with his primary care doctor or oncologist in regards to his symptoms. Return should he be agreeable to admission. Patient was agreeable to plan was discharged in stable condition with a guarded prognosis Undiagnosed new problem with uncertain prognosis? @ -No Drug Therapy requiring intensive monitoring for toxicity (Heparin, Nitro, Insulin, Cardizem)? @ -No Were any procedures done? @ -No Diagnosis/symptom? @-Acute chest pain, history of multiple myeloma on chemotherapy Acute, or Chronic, or Acute on Chronic? @ -Acute Uncomplicated (without systemic symptoms) or Complicated (systemic symptoms)? @ -Complicated Side effects of treatment? @ -No Exacerbation, Progression, or Severe Exacerbation? @ -No Poses a threat to life or bodily function? How? (Chest pain, [place], PA, pneumonia, PE, COPD, DKA, ARF, appy, cholecystitis, CVA, Diverticulitis, Homicidal, Suicidal, threat to staff... and all critical care pts) @ -Possibly a symptoms may be due to ACS Disposition Clinical Impression: Chest pain Disposition: HOME SELF-CARE Condition: Stable Instructions (If sedation given, give patient instructions): Chest Pain (ED) Additional Instructions: I did recommend admission. Please follow-up with your doctor in regards to your symptoms. Return for any new or worsening symptoms Is patient prescribed a controlled substance at d/c from ED?: No Referrals: Oswald Carbajal MD [Primary Care Provider] - 1-2 days Time of Disposition: 14:56
[2024-07-30 11:41] LABS: HCT 30.6 % (39.0-53.0); Hypochromasia Slight; MCH 33.6 pg (25.0-35.0); MCHC 31.8 g/dL (31.0-37.0); MCV 105.8 fL (80.0-100.0); Macrocytosis Moderate; Mean Platelet Volume 8.4; RBC 2.89 m/uL (4.30-5.90); RDW 15.6 % (11.5-15.5)
[2024-07-30 11:58] LABS: ALT 12 U/L (4-49); AST 24 U/L (17-59); African American GFR (CKD) 62 (>60 ml/min/1.73 sqM); Albumin 3.7 g/dL (3.5-5.0); Alkaline Phosphatase 99 U/L (38-126); Anion Gap 8 mmol/L; Blood Urea Nitrogen 31 mg/dL (9-20); Calcium 8.8 mg/dL (8.4-10.2); Carbon Dioxide 19 mmol/L (22-30); Chloride 115 mmol/L (98-107); Glucose 59 mg/dL (74-99); Lipase 95 U/L (23-300); Magnesium 1.3 mg/dL (1.6-2.3); Non-African American GFR(CKD) 54 (>60 ml/min/1.73 sqM); Potassium 3.2 mmol/L (3.5-5.1); Sodium 142 mmol/L (137-145); Total Protein 6.3 g/dL (6.3-8.2)
[2024-07-30 12:00] LABS: HGB 9.7 gm/dL (13.0-17.5); WBC 0.3 k/uL (3.8-10.6)
[2024-07-30 12:06] LABS: NT-Pro-B-Type Natriuretic Pept 1070 pg/mL
[2024-07-30 12:14] LABS: Platelet Count 66 k/uL (150-450)
[2024-07-30 12:25] LABS: Partial Thromboplastin Time 20.8 sec (22.0-30.0)
--- NOTE | 2024-07-30 12:46 | XR ---
EXAMINATION TYPE: XR chest 2V DATE OF EXAM: 07/30/2024 COMPARISON: NONE TECHNIQUE: PA and lateral views submitted. HISTORY: Chest pain FINDINGS: The lungs are clear and there is no pneumothorax, pleural effusion, or focal pneumonia. Heart size normal and no overt failure. Osseous structures demonstrate hypertrophic and degenerative changes of the spine. A compression deformity at the thoracolumbar junction likely is chronic. Bilateral nodules seen with the largest measuring 2.3 cm and the left lung. Deformity along the right lateral rib cage are noted. IMPRESSION: 1. Bilateral nodules the largest seen in the left measuring 2.3 cm. Most likely represent pleural jorge ques. Correlate for history of inhalational\asbestos related disease. There are no prior CT scans of the chest. The largest area measures 2.3 cm and recommend that this be confirmed with CT chest. 2. Findings are suspicious for an expansile lesion along the right lateral rib cage correlate for his tory of the malignancy or multiple myeloma. [facility], , 07/30/2024 12:44 PM
[2024-07-30 15:21] VITALS: BP 130/63; PULSE 68
== END 2024-07-30 15:21 | disposition home or self-care (01) ==
LOC: EC 11:09
CPT/HCPCS: 36415; 71046; 80053; 83690; 83735; 83880; 84484; 85025; 85610; 85730; 93005; 99285

== ENCOUNTER → 2024-09-20 | Outpatient (CLI) | payer MEDICARE ==
--- NOTE | 2024-09-20 13:14 | MR ---
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 IV Contrast: 7 mL Gadobutrol (None, if empty) FINDINGS: The craniovertebral junction is normal. Vertebral body alignment is normal. There is increased signal on postcontrast T1-weighted images within the anterior inferior endplate of C4 through the posterior 6 and within the left aspect of the C7-T1 vertebral levels. Note is also ma de of enhancement within the upper thoracic spine. Some patchy increased signal is evident on the T2- weighted sequences and these areas appear hypointense with ill-defined margins on T1-weighted images. Findings are suspicious for metastatic disease. Findings have developed from the prior MRI of 2019. T1-T2: No focal disc herniation or significant disc bulge is evident. No spinal canal stenosis or ne ural foraminal stenosis is present C7-T1: No focal disc herniation or significant disc bulge is evident. No spinal canal stenosis or n eural foraminal stenosis is present. C6-7: No focal disc herniation or significant disc bulge is evident. No spinal canal stenosis is pre sent. Bilateral foraminal narrowing from uncovertebral joint hypertrophy is present. C5-6: Small left paracentral disc herniation is present with mild anterior thecal sac compression. No cord contact or spinal canal stenosis is present. Foraminal narrowing is present bilaterally. C4-5: Moderate sized central disc herniation is present with moderate anterior thecal sac compression . Cord contact and some cord deformity is present. Mild AP spinal canal stenosis present. Foraminal n arrowing is present. C3-4: Minimal central disc bulge may be present with mild anterior thecal sac compression. No cord co ntact or spinal canal stenosis is present. Bilateral foraminal stenosis is present.. C2-3: Small central protrusion is present without significant thecal sac compression. No AP spinal ca nal stenosis present. No cord contact is evident. Neural foramen are patent. IMPRESSION: 1. New abnormal patchy signal within the cervical and upper thoracic spine compatible with metastatic change. 2. Chronic appearing disc changes centrally C2-3 C3-4 C4-5 present previously. 3. C4-5 disc herniation has cord compression and mild spinal canal stenosis may be slightly less then comparison would 2020. [facility], , 09/20/2024 1:12 PM
== END | disposition home or self-care (01) ==
LOC: RADMRIMAIN 10:53
PROVIDERS: ATTEND Internal Medicine Hematology & Oncology
DX: M48.02 Spinal stenosis, cervical region (principal); M50.221 Other cervical disc displacement at C4-C5 level; C90.01 Multiple myeloma in remission
CPT/HCPCS: 72156; A9585

== ENCOUNTER → 2025-01-26 | Outpatient (CLI) | payer MEDICARE ==
--- NOTE | 2025-01-26 15:14 | XR ---
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 Aorta and pulmonary vasculature within normal limits. Scattered nodular and plaque-like densities bilaterally. There is some peribronchial cuffing and some patchy o pacity posterior lung base on the lateral view. No pleural effusion. A couple expansile lesions withi n right-sided ribs redemonstrated. IMPRESSION: 1. Redemonstrated bilateral calcified pleural plaques. Query any history of prior asbestos exposure. 2. A couple expansile osseous lesions involving right-sided ribs redemonstrated. 3. Some patchy posterior basilar opacity on the lateral view could represent atelectasis or developin g infiltrate. [facility], Workstation: [facility], 01/26/2025 3:11 PM
== END | disposition home or self-care (01) ==
LOC: RADXRMAIN 09:10
PROVIDERS: ATTEND Internal Medicine Hematology & Oncology
DX: J94.8 Other specified pleural conditions (principal); C90.01 Multiple myeloma in remission; R19.7 Diarrhea, unspecified; D51.9 Vitamin B12 deficiency anemia, unspecified; D72.819 Decreased white blood cell count, unspecified
CPT/HCPCS: 71046